=== PATIENT | female | born 1970 | race Two or more races ===

== ENCOUNTER 2018-11-26 00:24 | Emergency (ER) | payer SELFPAY ==
[~2018-11-26] VITALS: Ht 165.1 cm; Wt 109.8 kg
[2018-11-26] MEDS ORDERED: LISI1TAB29 PO (00:46)
[2018-11-26 01:30] VITALS: BP 133/79
[2018-11-26] MEDS ORDERED: CARISOPRODOL 350 MG TABLET PO ONE (01:30)
[2018-11-26] MEDS ORDERED: KETOROLAC TROMETHAMINE 60 MG/2 ML VIAL IM ONE (01:30)
== END 2018-11-26 02:10 | disposition home or self-care (01) ==
LOC: EMS 00:25
DX: S43.422A Sprain of left rotator cuff capsule, initial encounter (principal); I10 Essential (primary) hypertension; E11.9 Type 2 diabetes mellitus without complications; Z79.899 Other long term (current) drug therapy; X50.0XXA Overexertion from strenuous movement or load, initial encounter; Y93.89 Activity, other specified; Y92.89 Other specified places as the place of occurrence of the external cause; Y99.8 Other external cause status
CPT/HCPCS: 96372; 99283; J1885